=== PATIENT | female | born 1965 | race Caucasian/White ===

== ENCOUNTER 2021-07-03 15:34 | Emergency (ER) | payer OTHER, SELFPAY ==
[~2021-07-03] VITALS: Ht 170.2 cm; Wt 93.9 kg
[2021-07-03 15:34] VITALS: BP_SYST 130
[2021-07-03 16:26] LABS: HEMATOCRIT 36.9 % (36-48); RED CELL DISTRIBUTION WIDTH 15.7 % (9.0-15.0)
[2021-07-03 16:34] LABS: BASOPHILS % (AUTO) 0.3 % (0.0-2.0); EOSINOPHILS # (AUTO) 0.1 K/uL (0.0-0.4); EOSINOPHILS % (AUTO) 0.9 % (0.0-4.0); LYMPHOCYTES # (AUTO) 1.9 K/uL (1.0-5.5); LYMPHOCYTES % (AUTO) 25.6 % (20.5-51.5); MEAN CORPUSCULAR HEMOGLOBIN 29 pg (27-31); MEAN CORPUSCULAR HGB CONC 33 % (32-36); MEAN CORPUSCULAR VOLUME 89 fL (79.0-98.0); MONOCYTES # (AUTO) 0.5 K/uL (0.0-1.0); MONOCYTES % (AUTO) 6.4 % (1.7-9.3); NEUTROPHILS # (AUTO) 4.9 K/uL (1.8-7.7); NEUTROPHILS % (AUTO) 66.8 % (40.0-70.0); PLATELET COUNT (AUTO) 241 K/uL (130-430); RED BLOOD CELL COUNT(AUTO) 4.13 MIL/uL (4.2-6.2); WHITE BLOOD COUNT (AUTO) 7.3 K/uL (4.8-10.8)
[2021-07-03 16:38] LABS: ANION GAP 8 (5-15); CHLORIDE 102 mmol/L (98-107); CREATININE 0.63 mg/dL (0.55-1.30); GLUCOSE 113 mg/dL (70-99); POTASSIUM 5.1 mmol/L (3.5-5.1); SODIUM SERUM 140 mmol/L (136-145); UREA NITROGEN, BLOOD 18 mg/dL (8-21)
[2021-07-03 16:41] LABS: GFR AFRICAN AMERICAN 125 mL/min (>90)
[2021-07-03 16:46] LABS: ALANINE AMINOTRANSFERASE 16 U/L (12-78); ALBUMIN 3.5 g/dL (3.4-4.8); ASPARTATE AMINOTRANSFERASE 13 U/L (10-37); TOTAL BILIRUBIN 0.6 mg/dL (0.0-1.0)
[2021-07-03 16:47] LABS: ALCOHOL, BLOOD < 3 mg/dL (<10)
[2021-07-03 16:48] LABS: ACETAMINOPHEN < 1 ug/mL (1-30)
[2021-07-03 16:59] LABS: VALPROIC ACID 46 ug/mL (50-100)
[2021-07-03 18:10] LABS: BILIRUBIN,URINE NEGATIVE (NEGATIVE); BLOOD, URINE NEGATIVE (NEGATIVE); CLARITY/URINE SL CLOUDY (CLEAR); COLOR,URINE YELLOW (YELLOW); GLUCOSE,URINE 3+ (NEGATIVE); KETONES,URINE TRACE (NEGATIVE); LEUKOCYTE ESTERASE ,URINE TRACE (NEGATIVE); NITRITE, URINE NEGATIVE (NEGATIVE); PROTEIN URINE NEGATIVE (NEGATIVE); UROBILINOGEN,URINE 0.2 (0.2-1.0)
[2021-07-03 18:24] LABS: BARBITURATE, URINE NEGATIVE (NEG <=200); BENZODIAZEPINE, URINE NEGATIVE (NEG <=150); CANNABINOID, URINE NEGATIVE (NEG <=50); COCAINE, URINE NEGATIVE (NEG <=150); METHAMPHETAMINES SCREEN,URINE NEGATIVE (NEG <=500); OPIATE, URINE NEGATIVE (NEG <=100); PHENCYCLIDINE SCREEN,URINE NEGATIVE (NEG <=25); UR TRICYCLIC ANTIDEPRESSANTS NEGATIVE (NEG <=300); URINE AMPHETAMINE NEGATIVE (NEG <=500); URINE METHADONE NEGATIVE (NEG <=200); URINE OXYCODONE SCREEN NEGATIVE (NEG <=100); URINE PROPOXYPHENE SCREEN NEGATIVE (NEG <=300)
[2021-07-03 18:25] LABS: BACTERIA,URINE FEW /HPF (None Seen); YEAST,URINE Rare /HPF (None Seen)
[2021-07-03 18:26] LABS: MUCUS,URINE 1+ /LPF (None Seen)
[2021-07-03 19:12] VITALS: BP_SYST 135
== END 2021-07-03 19:12 | disposition home or self-care (01) ==
LOC: SED 15:34 → EDSEX 15:34 → SED 19:12
DX: F31.9 Bipolar disorder, unspecified (principal); I10 Essential (primary) hypertension; E11.9 Type 2 diabetes mellitus without complications; J45.909 Unspecified asthma, uncomplicated; E78.5 Hyperlipidemia, unspecified; F17.210 Nicotine dependence, cigarettes, uncomplicated; Z20.822 Contact with and (suspected) exposure to COVID-19; Z88.8 Allergy status to other drugs, medicaments and biological substances; Z88.1 Allergy status to other antibiotic agents; Z95.1 Presence of aortocoronary bypass graft
CPT/HCPCS: 36415; 71045; 80053; 80164; 80307; 81000; 84484; 85025; 87081; 87086; 87426; 93005; 99285; G0480; G0481; G0482

== ENCOUNTER 2021-07-28 11:35 | Emergency (ER) | payer OTHER, MEDICAID ==
[~2021-07-28] VITALS: Ht 154.9 cm; Wt 99.8 kg
[2021-07-28 11:40] VITALS: BP_SYST 155
[2021-07-28] MEDS ORDERED: METF-518 PO (12:24)
[2021-07-28] MEDS ORDERED: DULO60CA42 PO (12:24)
[2021-07-28] MEDS ORDERED: LIP80 PO (12:24)
[2021-07-28] MEDS ORDERED: MONT-40 PO (12:24)
[2021-07-28] MEDS ORDERED: EMPA25TA PO (12:24)
[2021-07-28] MEDS ORDERED: FLO44 INH (12:24)
[2021-07-28] MEDS ORDERED: POTA-197 PO (12:24)
[2021-07-28] MEDS ORDERED: ASPI-1393 PO (12:24)
[2021-07-28] MEDS ORDERED: MULT-1117 PO (12:24)
[2021-07-28] MEDS ORDERED: DIVA500T4 PO (12:24)
[2021-07-28] MEDS ORDERED: QUET50TA PO (12:24)
[2021-07-28] MEDS ORDERED: ALPHAGANP EACH EYE (12:24)
[2021-07-28] MEDS ORDERED: INSU100V9 SQ (12:24)
[2021-07-28] MEDS ORDERED: XALEYE OP (12:24)
[2021-07-28] MEDS ORDERED: METO25TA6 PO (12:24)
[2021-07-28] MEDS ORDERED: NEU300 PO (12:24)
[2021-07-28] MEDS ORDERED: INSU100V SQ (12:24)
[2021-07-28] MEDS ORDERED: VITD2000 PO (12:24)
[2021-07-28 12:25] LABS: BASOPHILS % (AUTO) 0.4 % (0.0-2.0); EOSINOPHILS % (AUTO) 0.6 % (0.0-4.0); HEMATOCRIT 37.6 % (36-48); HEMOGLOBIN 12.3 g/dL (12.0-16.0); LYMPHOCYTES # (AUTO) 2.1 K/uL (1.0-5.5); LYMPHOCYTES % (AUTO) 27.7 % (20.5-51.5); MEAN CORPUSCULAR HEMOGLOBIN 28 pg (27-31); MEAN CORPUSCULAR HGB CONC 33 % (32-36); MEAN CORPUSCULAR VOLUME 87 fL (79.0-98.0); MONOCYTES # (AUTO) 0.5 K/uL (0.0-1.0); MONOCYTES % (AUTO) 6.3 % (1.7-9.3); PLATELET COUNT (AUTO) 208 K/uL (130-430); RED BLOOD CELL COUNT(AUTO) 4.34 MIL/uL (4.2-6.2); RED CELL DISTRIBUTION WIDTH 15.3 % (9.0-15.0); WHITE BLOOD COUNT (AUTO) 7.7 K/uL (4.8-10.8)
[2021-07-28 12:33] LABS: ANION GAP 14 (5-15); CALCIUM 9.6 mg/dL (8.4-11.0); CHLORIDE 103 mmol/L (98-107); CREATININE 0.79 mg/dL (0.55-1.30); GLUCOSE 115 mg/dL (70-99); POTASSIUM 4.3 mmol/L (3.5-5.1); SODIUM SERUM 140 mmol/L (136-145); UREA NITROGEN, BLOOD 20 mg/dL (8-21)
[2021-07-28 12:34] LABS: GFR AFRICAN AMERICAN 96 mL/min (>90)
[2021-07-28 12:46] LABS: ALANINE AMINOTRANSFERASE 26 U/L (12-78); ALBUMIN 3.6 g/dL (3.4-4.8); ASPARTATE AMINOTRANSFERASE 22 U/L (10-37); TOTAL BILIRUBIN 0.9 mg/dL (0.0-1.0)
[2021-07-28 12:47] LABS: ACETAMINOPHEN < 1 ug/mL (1-30); ALCOHOL, BLOOD < 3 mg/dL (<10)
[2021-07-28 12:53] LABS: VALPROIC ACID < 3 ug/mL (50-100)
[2021-07-28 14:51] LABS: BILIRUBIN,URINE NEGATIVE (NEGATIVE); BLOOD, URINE NEGATIVE (NEGATIVE); CLARITY/URINE CLEAR (CLEAR); COLOR,URINE YELLOW (YELLOW); GLUCOSE,URINE 3+ (NEGATIVE); KETONES,URINE NEGATIVE (NEGATIVE); LEUKOCYTE ESTERASE ,URINE TRACE (NEGATIVE); NITRITE, URINE NEGATIVE (NEGATIVE); PH,URINE 6.5 (5.0-8.0); PROTEIN URINE NEGATIVE (NEGATIVE); UROBILINOGEN,URINE 0.2 (0.2-1.0)
[2021-07-28 15:00] VITALS: BP_SYST 132
[2021-07-28 15:07] LABS: BARBITURATE, URINE NEGATIVE (NEG <=200); BENZODIAZEPINE, URINE NEGATIVE (NEG <=150); CANNABINOID, URINE NEGATIVE (NEG <=50); COCAINE, URINE NEGATIVE (NEG <=150); METHAMPHETAMINES SCREEN,URINE NEGATIVE (NEG <=500); OPIATE, URINE NEGATIVE (NEG <=100); PHENCYCLIDINE SCREEN,URINE NEGATIVE (NEG <=25); RBC,URINE NONE SEEN /HPF (0-3); UR TRICYCLIC ANTIDEPRESSANTS POSITIVE (NEG <=300); URINE AMPHETAMINE NEGATIVE (NEG <=500); URINE METHADONE NEGATIVE (NEG <=200); URINE OXYCODONE SCREEN NEGATIVE (NEG <=100); URINE PROPOXYPHENE SCREEN NEGATIVE (NEG <=300)
[2021-07-28 15:08] LABS: BACTERIA,URINE FEW /HPF (None Seen); MUCUS,URINE None Seen /LPF (None Seen)
== END 2021-07-28 16:21 ==
LOC: SED 11:35
DX: R45.851 Suicidal ideations (principal); I10 Essential (primary) hypertension; E11.9 Type 2 diabetes mellitus without complications; J45.909 Unspecified asthma, uncomplicated; Z88.1 Allergy status to other antibiotic agents; Z88.8 Allergy status to other drugs, medicaments and biological substances; Z79.899 Other long term (current) drug therapy; Z20.822 Contact with and (suspected) exposure to COVID-19
CPT/HCPCS: 36415; 80053; 80164; 80307; 81000; 85025; 87081; 87426; 99285; G0480; G0481; G0482

== ENCOUNTER 2021-11-14 10:59 | Inpatient (IN) | payer OTHER, MEDICAID ==
[~2021-11-14] VITALS: Ht 165.1 cm; Wt 96.6 kg
[~2021-11-14 10:59] MED LIST: ALPHAGANP EACH EYE; ASPI-1393 PO; DIVA500T4 PO; DULO60CA42 PO; EMPA25TA PO; FLO44 INH; INSU100V SQ; INSU100V9 SQ; LIP80 PO; METF-518 PO; METO25TA6 PO; MONT-40 PO; MULT-1117 PO; NEU300 PO; POTA-197 PO; QUET50TA PO; VITD2000 PO; XALEYE OP
[2021-11-14 11:08] VITALS: BP_SYST 100
[2021-11-14] MEDS ORDERED: AMPICILLIN SODIUM/SULBACTAM NA 1.5 GM in NS 50 ML IV ONE (11:30)
[2021-11-14] MEDS ORDERED: NACL 0.9% 1,000 ML IV ONE (11:30)
[2021-11-14] MEDS ORDERED: AMPICILLIN SODIUM/SULBACTAM NA 1.5 GM VIAL ONE (11:53)
[2021-11-14 12:03] LABS: BASOPHILS # (AUTO) 0.2 K/uL (0.0-0.2); BASOPHILS % (AUTO) 0.5 % (0.0-2.0); HEMATOCRIT 36.9 % (36-48); LYMPHOCYTES # (AUTO) 1.2 K/uL (1.0-5.5); LYMPHOCYTES % (AUTO) 3.7 % (20.5-51.5); MEAN CORPUSCULAR HEMOGLOBIN 27 pg (27-31); MEAN CORPUSCULAR HGB CONC 33 % (32-36); MEAN CORPUSCULAR VOLUME 83 fL (79.0-98.0); MONOCYTES # (AUTO) 0.9 K/uL (0.0-1.0); MONOCYTES % (AUTO) 2.6 % (1.7-9.3); PLATELET COUNT (AUTO) 169 K/uL (130-430); RED BLOOD CELL COUNT(AUTO) 4.44 MIL/uL (4.2-6.2); RED CELL DISTRIBUTION WIDTH 19.3 % (9.0-15.0)
[2021-11-14 12:19] LABS: CALCIUM 8.9 mg/dL (8.4-11.0); CREATININE 1.18 mg/dL (0.55-1.30); WHITE BLOOD COUNT (AUTO) 33.3 K/uL (4.8-10.8)
[2021-11-14 12:32] LABS: ALBUMIN 2.5 g/dL (3.4-4.8); TOTAL BILIRUBIN 1.4 mg/dL (0.0-1.0)
[2021-11-14 12:58] LABS: NEUTROPHILS % (AUTO) 93.2 % (40.0-70.0)
[2021-11-14] MEDS ORDERED: MORPHINE 2 MG/ML INJ. SYRINGE IVP PRN ×2 (14:45)
[2021-11-14] MEDS ORDERED: MAGNESIUM SULFATE 50 ML IV PRN (14:45)
[2021-11-14] MEDS ORDERED: POTASSIUM CHLORIDE 20 MEQ TAB.PRT.SR PO PRN (14:45)
[2021-11-14] MEDS ORDERED: DOCUSATE SODIUM 100 MG CAPSULE PO PRN (14:45)
[2021-11-14] MEDS ORDERED: ACETAMINOPHEN 325 MG TABLET PO PRN (14:45)
[2021-11-14] MEDS ORDERED: NALOXONE HCL 0.4 MG/ML AMP (NARCAN) IVP PRN ×2 (14:45)
[2021-11-14] MEDS ORDERED: ONDANSETRON HCL 4 MG/2 ML VIAL IVP PRN (14:45)
[2021-11-14 15:44] VITALS: BP_SYST 114
[2021-11-14 15:46] LABS: BILIRUBIN,URINE NEGATIVE (NEGATIVE); BLOOD, URINE NEGATIVE (NEGATIVE); GLUCOSE,URINE 3+ (NEGATIVE); KETONES,URINE 1+ (NEGATIVE); LEUKOCYTE ESTERASE ,URINE NEGATIVE (NEGATIVE); NITRITE, URINE NEGATIVE (NEGATIVE); PH,URINE 5.5 (5.0-8.0); PROTEIN URINE TRACE (NEGATIVE); UROBILINOGEN,URINE 0.2 (0.2-1.0)
[2021-11-14 16:05] LABS: CLARITY/URINE HAZY (CLEAR); COLOR,URINE AMBER (YELLOW)
[2021-11-14 16:14] VITALS: BP_SYST 114
[2021-11-14] MEDS: GABAPENTIN 300 MG CAPSULE PO SCH ×2 (16:35→21:35)
[2021-11-14] MEDS: metFORMIN HCL 500 MG TABLET PO SCH (16:36)
[2021-11-14] MEDS: NACL 0.9% 1,000 ML IV SCH (16:40)
[2021-11-14] MEDS: LORazepam 2 MG/ML VIAL IVP PRN (17:42)
[2021-11-14] MEDS: VANCOMYCIN HCL 750 MG in NS 250 ML IV SCH (17:48)
[2021-11-14 17:53] LABS: BACTERIA,URINE FEW /HPF (None Seen); RBC,URINE 0-3 /HPF (0-3)
[2021-11-14 17:54] LABS: MUCUS,URINE None Seen /LPF (None Seen)
[2021-11-14] MEDS: INSULIN REGULAR, HUMAN 100 UNITS/ML, 10 ML VIAL (humuLIN R) SUBCUT PRN (17:57)
[2021-11-14] MEDS: MONTELUKAST 10 MG TABLET PO SCH (18:00)
[2021-11-14 20:00] VITALS: BP_SYST 113
[2021-11-14] MEDS ORDERED: ATORVASTATIN 20 MG TABLET PO SCH (21:00)
[2021-11-14] MEDS: PIPERACILLIN/TAZO 4.5GM/DEX-IS 100 ML IV SCH (21:31)
[2021-11-14] MEDS: QUEtiapine FUMARATE 25 MG TABLET PO SCH (21:34)
[2021-11-14] MEDS: METOPROLOL TARTRATE 25 MG TABLET PO SCH (21:36)
[2021-11-14] MEDS: ZOLPIDEM TARTRATE 5 MG TABLET PO PRN (21:38)
[2021-11-14] MEDS: HEPARIN SODIUM,PORCINE 5,000 UNITS/ML VIAL SUBCUT SCH (21:41)
[2021-11-14] MEDS: LATANOPROST 2.5 ML DROPS (XALATAN) BOTH EYES SCH (21:42)
[2021-11-14] MEDS: BRIMONIDINE TARTRATE 0.2% 5 mL EYE DROPS EACH EYE SCH (21:42)
[2021-11-15 01:30] VITALS: BP_SYST 123
[2021-11-15] MEDS: VANCOMYCIN HCL 750 MG in NS 250 ML IV SCH ×2 (04:15→18:10)
[2021-11-15] MEDS: NACL 0.9% 1,000 ML IV SCH ×3 (04:15→16:28)
[2021-11-15] MEDS: PIPERACILLIN/TAZO 4.5GM/DEX-IS 100 ML IV SCH ×3 (06:00→21:27)
[2021-11-15] MEDS: metFORMIN HCL 500 MG TABLET PO SCH ×2 (06:04→18:19)
[2021-11-15] MEDS: LORazepam 2 MG/ML VIAL IVP PRN (08:44)
[2021-11-15] MEDS: BUDESONIDE 0.5 MG/2 ML AMPUL.NEB INH SCH (09:00)
[2021-11-15] MEDS: HEPARIN SODIUM,PORCINE 5,000 UNITS/ML VIAL SUBCUT SCH ×2 (09:03→21:39)
[2021-11-15] MEDS: DULoxetine HCL 30 MG CAPSULE.DR (CYMBALTA) PO SCH (09:03)
[2021-11-15] MEDS: ASPIRIN 81 MG TABLET(ECOTRIN) PO SCH (09:04)
[2021-11-15] MEDS: DIVALPROEX SODIUM 500 MG TABLET( DEPAKOTE) PO SCH (09:04)
[2021-11-15] MEDS: GABAPENTIN 300 MG CAPSULE PO SCH ×3 (09:05→21:33)
[2021-11-15] MEDS: METOPROLOL TARTRATE 25 MG TABLET PO SCH ×2 (09:05→21:00)
[2021-11-15] MEDS: BRIMONIDINE TARTRATE 0.2% 5 mL EYE DROPS EACH EYE SCH ×2 (12:26→21:34)
[2021-11-15 12:39] LABS: BASOPHILS % (AUTO) 0.2 % (0.0-2.0); EOSINOPHILS % (AUTO) 0.1 % (0.0-4.0); HEMATOCRIT 32.6 % (36-48); HEMOGLOBIN 10.7 g/dL (12.0-16.0); LYMPHOCYTES % (AUTO) 4.7 % (20.5-51.5); MEAN CORPUSCULAR HEMOGLOBIN 27 pg (27-31); MEAN CORPUSCULAR HGB CONC 33 % (32-36); MEAN CORPUSCULAR VOLUME 82 fL (79.0-98.0); MONOCYTES # (AUTO) 0.9 K/uL (0.0-1.0); MONOCYTES % (AUTO) 4.2 % (1.7-9.3); NEUTROPHILS # (AUTO) 19.6 K/uL (1.8-7.7); NEUTROPHILS % (AUTO) 90.8 % (40.0-70.0); PLATELET COUNT (AUTO) 141 K/uL (130-430); RED BLOOD CELL COUNT(AUTO) 3.95 MIL/uL (4.2-6.2); RED CELL DISTRIBUTION WIDTH 18.9 % (9.0-15.0); WHITE BLOOD COUNT (AUTO) 21.6 K/uL (4.8-10.8)
[2021-11-15 12:44] VITALS: BP_SYST 113
[2021-11-15 12:57] LABS: CALCIUM 8.7 mg/dL (8.4-11.0); POTASSIUM 3.8 mmol/L (3.5-5.1)
[2021-11-15 16:24] VITALS: BP_SYST 104
[2021-11-15] MEDS: MONTELUKAST 10 MG TABLET PO SCH (18:00)
[2021-11-15 20:00] VITALS: BP_SYST 107
[2021-11-15] MEDS: ATORVASTATIN 20 MG TABLET PO SCH (21:33)
[2021-11-15] MEDS: QUEtiapine FUMARATE 25 MG TABLET PO SCH (21:33)
[2021-11-15] MEDS: LATANOPROST 2.5 ML DROPS (XALATAN) BOTH EYES SCH (21:34)
[2021-11-16 01:26] VITALS: BP_SYST 114
[2021-11-16] MEDS: LORazepam 2 MG/ML VIAL IVP PRN ×2 (01:28→13:29)
[2021-11-16] MEDS: VANCOMYCIN HCL 750 MG in NS 250 ML IV SCH ×2 (04:33→17:12)
[2021-11-16] MEDS: NACL 0.9% 1,000 ML IV SCH ×2 (05:47→16:22)
[2021-11-16] MEDS: PIPERACILLIN/TAZO 4.5GM/DEX-IS 100 ML IV SCH ×3 (05:48→21:32)
[2021-11-16] MEDS: metFORMIN HCL 500 MG TABLET PO SCH ×2 (06:02→17:16)
[2021-11-16 08:00] VITALS: BP_SYST 145
[2021-11-16 09:00] LABS: BASOPHILS % (AUTO) 0.1 % (0.0-2.0); HEMATOCRIT 30.9 % (36-48); HEMOGLOBIN 10.1 g/dL (12.0-16.0); LYMPHOCYTES # (AUTO) 0.8 K/uL (1.0-5.5); LYMPHOCYTES % (AUTO) 6.9 % (20.5-51.5); MEAN CORPUSCULAR HEMOGLOBIN 27 pg (27-31); MEAN CORPUSCULAR HGB CONC 33 % (32-36); MONOCYTES # (AUTO) 0.8 K/uL (0.0-1.0); MONOCYTES % (AUTO) 6.3 % (1.7-9.3); NEUTROPHILS # (AUTO) 10.5 K/uL (1.8-7.7); NEUTROPHILS % (AUTO) 86.7 % (40.0-70.0); PLATELET COUNT (AUTO) 123 K/uL (130-430); RED BLOOD CELL COUNT(AUTO) 3.69 MIL/uL (4.2-6.2); RED CELL DISTRIBUTION WIDTH 19.2 % (9.0-15.0); WHITE BLOOD COUNT (AUTO) 12.1 K/uL (4.8-10.8)
[2021-11-16] MEDS: BUDESONIDE 0.5 MG/2 ML AMPUL.NEB INH SCH (09:00)
[2021-11-16 09:08] LABS: CALCIUM 8.6 mg/dL (8.4-11.0); CREATININE 0.93 mg/dL (0.55-1.30); POTASSIUM 3.6 mmol/L (3.5-5.1)
[2021-11-16] MEDS: BRIMONIDINE TARTRATE 0.2% 5 mL EYE DROPS EACH EYE SCH ×2 (09:52→21:32)
[2021-11-16] MEDS: ASPIRIN 81 MG TABLET(ECOTRIN) PO SCH (09:53)
[2021-11-16] MEDS: DULoxetine HCL 30 MG CAPSULE.DR (CYMBALTA) PO SCH (09:53)
[2021-11-16] MEDS: GABAPENTIN 300 MG CAPSULE PO SCH ×3 (09:53→21:41)
[2021-11-16] MEDS: DIVALPROEX SODIUM 500 MG TABLET( DEPAKOTE) PO SCH (09:53)
[2021-11-16] MEDS: HEPARIN SODIUM,PORCINE 5,000 UNITS/ML VIAL SUBCUT SCH ×2 (09:54→21:44)
[2021-11-16] MEDS: METOPROLOL TARTRATE 25 MG TABLET PO SCH ×2 (09:59→21:38)
[2021-11-16 12:00] VITALS: BP_SYST 115
[2021-11-16] MEDS: MUPIROCIN 2% TOPICAL OINTMENT 22 GM NS SCH ×2 (12:33→21:33)
[2021-11-16] MEDS: INSULIN REGULAR, HUMAN 100 UNITS/ML, 10 ML VIAL (humuLIN R) SUBCUT PRN (12:40)
[2021-11-16 13:22] LABS: MEAN CORPUSCULAR VOLUME 84 fL (79.0-98.0)
[2021-11-16 16:00] VITALS: BP_SYST 106
[2021-11-16] MEDS: MONTELUKAST 10 MG TABLET PO SCH (17:21)
[2021-11-16 20:00] VITALS: BP_SYST 114
[2021-11-16] MEDS: LATANOPROST 2.5 ML DROPS (XALATAN) BOTH EYES SCH (21:33)
[2021-11-16] MEDS: ZOLPIDEM TARTRATE 5 MG TABLET PO PRN (21:35)
[2021-11-16] MEDS: ATORVASTATIN 20 MG TABLET PO SCH (21:42)
[2021-11-16] MEDS: QUEtiapine FUMARATE 25 MG TABLET PO SCH (21:42)
[2021-11-17] MEDS: NACL 0.9% 1,000 ML IV SCH ×3 (01:05→17:56)
[2021-11-17 01:15] VITALS: BP_SYST 124; BP_SYST 148
[2021-11-17] MEDS: VANCOMYCIN HCL 750 MG in NS 250 ML IV SCH (04:13)
[2021-11-17] MEDS: PIPERACILLIN/TAZO 4.5GM/DEX-IS 100 ML IV SCH (06:11)
[2021-11-17] MEDS: metFORMIN HCL 500 MG TABLET PO SCH ×2 (06:13→17:55)
[2021-11-17 07:52] LABS: CALCIUM 8.6 mg/dL (8.4-11.0); CREATININE 0.66 mg/dL (0.55-1.30); POTASSIUM 3.8 mmol/L (3.5-5.1)
[2021-11-17 09:00] VITALS: BP_SYST 114
[2021-11-17 09:11] LABS: BASOPHILS % (AUTO) 0.3 % (0.0-2.0); EOSINOPHILS % (AUTO) 0.2 % (0.0-4.0); HEMATOCRIT 31.4 % (36-48); HEMOGLOBIN 10.4 g/dL (12.0-16.0); LYMPHOCYTES # (AUTO) 1.1 K/uL (1.0-5.5); LYMPHOCYTES % (AUTO) 14.4 % (20.5-51.5); MEAN CORPUSCULAR HEMOGLOBIN 28 pg (27-31); MEAN CORPUSCULAR HGB CONC 33 % (32-36); MEAN CORPUSCULAR VOLUME 84 fL (79.0-98.0); MONOCYTES # (AUTO) 0.9 K/uL (0.0-1.0); NEUTROPHILS # (AUTO) 5.4 K/uL (1.8-7.7); NEUTROPHILS % (AUTO) 73.1 % (40.0-70.0); PLATELET COUNT (AUTO) 143 K/uL (130-430); RED BLOOD CELL COUNT(AUTO) 3.77 MIL/uL (4.2-6.2); RED CELL DISTRIBUTION WIDTH 18.8 % (9.0-15.0)
[2021-11-17] MEDS: BRIMONIDINE TARTRATE 0.2% 5 mL EYE DROPS EACH EYE SCH ×2 (10:09→21:25)
[2021-11-17] MEDS: ASPIRIN 81 MG TABLET(ECOTRIN) PO SCH (10:10)
[2021-11-17] MEDS: METOPROLOL TARTRATE 25 MG TABLET PO SCH ×2 (10:10→21:28)
[2021-11-17] MEDS: DIVALPROEX SODIUM 500 MG TABLET( DEPAKOTE) PO SCH (10:11)
[2021-11-17] MEDS: DULoxetine HCL 30 MG CAPSULE.DR (CYMBALTA) PO SCH (10:12)
[2021-11-17] MEDS: GABAPENTIN 300 MG CAPSULE PO SCH ×3 (10:12→21:27)
[2021-11-17] MEDS: HEPARIN SODIUM,PORCINE 5,000 UNITS/ML VIAL SUBCUT SCH ×2 (10:16→21:33)
[2021-11-17] MEDS: MUPIROCIN 2% TOPICAL OINTMENT 22 GM NS SCH ×2 (10:18→21:29)
[2021-11-17] MEDS: BUDESONIDE 0.5 MG/2 ML AMPUL.NEB INH SCH (10:19)
[2021-11-17] MEDS ORDERED: CEFTAROLINE FOSAMIL ACETATE 600 MG in NS 250 ML IV ONE (11:00)
[2021-11-17] MEDS ORDERED: NYSTATIN/TRIAMCIN 15 GM TOPICAL OINTMENT TP ONE (11:00)
[2021-11-17 11:51] LABS: WHITE BLOOD COUNT (AUTO) 7.4 K/uL (4.8-10.8)
[2021-11-17 12:50] VITALS: BP_SYST 124
[2021-11-17 16:52] VITALS: BP_SYST 116
[2021-11-17] MEDS: MONTELUKAST 10 MG TABLET PO SCH (17:55)
[2021-11-17 20:00] VITALS: BP_SYST 117
[2021-11-17] MEDS: LORazepam 2 MG/ML VIAL IVP PRN (20:01)
[2021-11-17] MEDS: CEFTAROLINE FOSAMIL ACETATE 600 MG in NS 250 ML IV SCH (21:16)
[2021-11-17] MEDS: ATORVASTATIN 20 MG TABLET PO SCH (21:27)
[2021-11-17] MEDS: QUEtiapine FUMARATE 25 MG TABLET PO SCH (21:27)
[2021-11-17] MEDS: NYSTATIN/TRIAMCIN 15 GM TOPICAL OINTMENT TP SCH (21:30)
[2021-11-17] MEDS: LATANOPROST 2.5 ML DROPS (XALATAN) BOTH EYES SCH (21:31)
[2021-11-18] VITALS: BP_SYST 115
[2021-11-18] MEDS: NACL 0.9% 1,000 ML IV SCH ×2 (02:05→11:09)
[2021-11-18] MEDS: metFORMIN HCL 500 MG TABLET PO SCH (06:02)
[2021-11-18] MEDS: MUPIROCIN 2% TOPICAL OINTMENT 22 GM NS SCH (09:00)
[2021-11-18] MEDS: ASPIRIN 81 MG TABLET(ECOTRIN) PO SCH (09:00)
[2021-11-18] MEDS: GABAPENTIN 300 MG CAPSULE PO SCH (09:00)
[2021-11-18] MEDS: METOPROLOL TARTRATE 25 MG TABLET PO SCH (09:00)
[2021-11-18] MEDS: CEFTAROLINE FOSAMIL ACETATE 600 MG in NS 250 ML IV SCH (09:00)
[2021-11-18] MEDS: BRIMONIDINE TARTRATE 0.2% 5 mL EYE DROPS EACH EYE SCH (09:00)
[2021-11-18] MEDS: HEPARIN SODIUM,PORCINE 5,000 UNITS/ML VIAL SUBCUT SCH (09:00)
[2021-11-18] MEDS: DULoxetine HCL 30 MG CAPSULE.DR (CYMBALTA) PO SCH (09:00)
[2021-11-18] MEDS: NYSTATIN/TRIAMCIN 15 GM TOPICAL OINTMENT TP SCH (09:00)
[2021-11-18] MEDS: DIVALPROEX SODIUM 500 MG TABLET( DEPAKOTE) PO SCH (09:00)
[2021-11-18 09:04] LABS: BASOPHILS % (AUTO) 0.3 % (0.0-2.0); EOSINOPHILS % (AUTO) 0.4 % (0.0-4.0); HEMATOCRIT 33.4 % (36-48); LYMPHOCYTES % (AUTO) 12.9 % (20.5-51.5); MEAN CORPUSCULAR HEMOGLOBIN 28 pg (27-31); MEAN CORPUSCULAR HGB CONC 33 % (32-36); MEAN CORPUSCULAR VOLUME 84 fL (79.0-98.0); MONOCYTES # (AUTO) 0.9 K/uL (0.0-1.0); MONOCYTES % (AUTO) 12.1 % (1.7-9.3); NEUTROPHILS # (AUTO) 5.8 K/uL (1.8-7.7); NEUTROPHILS % (AUTO) 74.3 % (40.0-70.0); PLATELET COUNT (AUTO) 179 K/uL (130-430); RED BLOOD CELL COUNT(AUTO) 3.97 MIL/uL (4.2-6.2); RED CELL DISTRIBUTION WIDTH 19.1 % (9.0-15.0); WHITE BLOOD COUNT (AUTO) 7.8 K/uL (4.8-10.8)
[2021-11-18 09:07] LABS: CALCIUM 8.7 mg/dL (8.4-11.0); CREATININE 0.61 mg/dL (0.55-1.30); POTASSIUM 4.3 mmol/L (3.5-5.1)
[2021-11-18 11:28] VITALS: BP_SYST 124
[2021-11-18 13:12] VITALS: BP_SYST 139
== END 2021-11-18 14:45 | DRG 872 ==
LOC: SED 10:59 → SMU 13:33
PROVIDERS: ADMIT General Practice; ATTEND General Practice
DX: A41.9 Sepsis, unspecified organism (principal); L03.116 Cellulitis of left lower limb; E44.0 Moderate protein-calorie malnutrition; N39.0 Urinary tract infection, site not specified; E87.2 Acidosis; L03.115 Cellulitis of right lower limb; F41.9 Anxiety disorder, unspecified; E11.40 Type 2 diabetes mellitus with diabetic neuropathy, unspecified; E66.01 Morbid (severe) obesity due to excess calories; E78.5 Hyperlipidemia, unspecified; F31.9 Bipolar disorder, unspecified; I25.10 Atherosclerotic heart disease of native coronary artery without angina pectoris; J45.909 Unspecified asthma, uncomplicated; R65.20 Severe sepsis without septic shock; Z20.822 Contact with and (suspected) exposure to COVID-19; Z87.440 Personal history of urinary (tract) infections; Z95.1 Presence of aortocoronary bypass graft; Z68.35 Body mass index [BMI] 35.0-35.9, adult; Z79.899 Other long term (current) drug therapy; Z88.8 Allergy status to other drugs, medicaments and biological substances; Z79.82 Long term (current) use of aspirin; Z90.49 Acquired absence of other specified parts of digestive tract; Z79.2 Long term (current) use of antibiotics; Z22.322 Carrier or suspected carrier of Methicillin resistant Staphylococcus aureus
CPT/HCPCS: 36415; 71045; 80048; 80053; 80202; 81000; 82962; 83036; 83605; 83735; 85025; 87040; 87081; 87086; 93005; 96365; 97163-GP; 99285; J0295; J0712; J1644; J1815; J2060; J2405; J2543; J7050